=== PATIENT | male | born 1990 | race Caucasian/White ===

== ENCOUNTER 2022-10-22 18:17 | Emergency (ER) | payer OTHER ==
[~2022-10-22] VITALS: Ht 188 cm; Wt 106.6 kg
[2022-10-22] MEDS ORDERED: LACTATED RINGERS 1,000 ML IV ONE (18:30)
[2022-10-22 18:35] LABS: BASOPHILS % (AUTO) 1 % (0-10); EOSINOPHILS # (AUTO) 0.2 10^3/uL (0.0-0.3); EOSINOPHILS % (AUTO) 4 % (0-10); HEMATOCRIT 42 % (40-54); HEMOGLOBIN 14.3 g/dL (13.3-17.7); LYMPHOCYTES # (AUTO) 1.3 10^3/uL (1.0-4.0); LYMPHOCYTES % (AUTO) 26 % (12-44); MEAN CORPUSCULAR HEMOGLOBIN 30 pg (25-34); MEAN CORPUSCULAR HGB CONC 34 g/dL (32-36); MEAN CORPUSCULAR VOLUME 86 fL (80-99); MEAN PLATELET VOLUME 11.3 fL (9.0-12.2); MONOCYTES # (AUTO) 0.3 10^3/uL (0.0-1.0); MONOCYTES % (AUTO) 7 % (0-12); NEUTROPHILS % (AUTO) 62 % (42-75); PLATELET COUNT 209 10^3/uL (130-400); WHITE BLOOD COUNT 4.9 10^3/uL (4.3-11.0)
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
[2022-10-22 18:45] LABS: ALBUMIN 4.2 GM/DL (3.2-4.5); CHLORIDE 110 MMOL/L (98-107); POTASSIUM 3.4 MMOL/L (3.6-5.0); SODIUM 141 MMOL/L (135-145)
[2022-10-22] MEDS ORDERED: HOLD METFORMIN - RECEIVED CONTRAST 20 ML VIAL IV SCH (18:45)
[2022-10-22] MEDS ORDERED: IOHEXOL 350 MG/ML 100 ML (OMNIPAQUE 350) VIAL IV ONE (18:45)
[2022-10-22] MEDS ORDERED: NS 100 ML (IVPB) BAG IV ONE (18:45)
[2022-10-22 18:46] LABS: AMYLASE 28 U/L (25-125); CALCIUM 9.3 MG/DL (8.5-10.1)
[2022-10-22 18:47] LABS: GLUCOSE 103 MG/DL (70-105); TOTAL PROTEIN 6.5 GM/DL (6.4-8.2)
[2022-10-22 18:48] LABS: CARBON DIOXIDE 22 MMOL/L (21-32)
[2022-10-22 18:49] LABS: BILIRUBIN,TOTAL 0.8 MG/DL (0.1-1.0)
[2022-10-22 18:50] LABS: ALKALINE PHOSPHATASE 46 U/L (40-136)
[2022-10-22 18:51] LABS: CREATININE SERUM 0.88 MG/DL (0.60-1.30); GFR ESTIMATED 117; INR 1.1 (0.8-1.4); PROTHROMBIN TIME PATIENT 14.3 SEC (12.2-14.7)
[2022-10-22 18:52] LABS: BUN/CREATININE RATIO 13
[2022-10-22 18:54] LABS: ALANINE AMINOTRANSFERASE 13 U/L (0-55); LIPASE 18 U/L (8-78)
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
--- NOTE | 2022-10-22 19:40 | Diagnostic Imaging Report ---
INDICATION: Forearm pain. 2 views were obtained. FINDINGS: The alignment is normal. No fracture or dislocation. Soft tissues are unremarkable. IMPRESSION: No acute fracture or dislocation. Dictated by: Dictated on workstation # [id number]
--- NOTE | 2022-10-22 19:41 | Diagnostic Imaging Report ---
INDICATION: Wrist pain. 3 views were obtained. FINDINGS: The alignment is normal. There is no fracture or dislocation. Soft tissues are unremarkable. IMPRESSION: No acute fracture or dislocation. Dictated by: Dictated on workstation # [id number]
--- NOTE | 2022-10-22 19:41 | Diagnostic Imaging Report ---
INDICATION: Pelvic pain. FINDINGS: Examination of the pelvis in the supine projection fails to reveal evidence of fracture, dislocation or other osseous abnormality. IMPRESSION: Negative pelvis. Dictated by: Dictated on workstation # [id number]
--- NOTE | 2022-10-22 19:41 | Diagnostic Imaging Report ---
INDICATION: Leg pain 4 views were obtained. FINDINGS: The alignment of left tibia and fibular are normal. Knee and ankle are intact. There is no fracture or dislocation. Soft tissues are unremarkable. IMPRESSION: No acute fracture or dislocation. Dictated by: Dictated on workstation # [id number]
[2022-10-22] MEDS ORDERED: KETOROLAC 30 MG/ML VIAL IVP ONE (20:00)
[2022-10-22] MEDS ORDERED: CYCL10TA25 PO (20:05)
[2022-10-22] MEDS ORDERED: NAPR500T8 PO (20:05)
[2022-10-22] MEDS ORDERED: RX-CYCLOBENZAPRINE 10 MG (FLEXERIL) TAB PPK#3 PO STA (20:06)
[2022-10-22] MEDS ORDERED: RX-NAPROXEN (NAPROSYN) 250 MG TAB PPK#4 PO STA (20:06)
[2022-10-22 20:33] LABS: BILIRUBIN,URINE NEGATIVE (NEGATIVE); CLARITY,URINE CLEAR; COLOR,URINE YELLOW; GLUCOSE, URINE (UA) NEGATIVE (NEGATIVE); KETONES,URINE NEGATIVE (NEGATIVE); LEUKOCYTE ESTERASE ,URINE NEGATIVE (NEGATIVE); NITRITE,URINE NEGATIVE (NEGATIVE); PH,URINE 6.5 (5-9); PROTEIN,URINE NEGATIVE (NEGATIVE)
[2022-10-22 20:38] LABS: BACTERIA,URINE NEGATIVE /HPF; SQUAMOUS EPITHELIAL CELL,UR RARE /HPF
[2022-10-22 20:41] LABS: AMPHETAMINE SCREEN, URINE NEGATIVE (NEGATIVE); BARBITURATE SCREEN URINE NEGATIVE (NEGATIVE); BENZODIAZEPINES SCREEN URINE NEGATIVE (NEGATIVE); CANNABINOID SCREEN, URINE NEGATIVE (NEGATIVE); COCAINE SCREEN URINE NEGATIVE (NEGATIVE); METHADONE STAT NEGATIVE (NEGATIVE); OPIATE SCREEN URINE NEGATIVE (NEGATIVE); OXYCODONE STAT NEGATIVE (NEGATIVE); PROPOXYPHENE STAT NEGATIVE (NEGATIVE); TRICYCLIC ANTIDEPRESSANTS SCRE NEGATIVE (NEGATIVE)
[2022-10-22 20:48] VITALS: BP 140/83
== END 2022-10-22 20:48 | disposition home or self-care (01) ==
LOC: ER 18:19
DX: S16.1XXA Strain of muscle, fascia and tendon at neck level, initial encounter (principal); S39.012A Strain of muscle, fascia and tendon of lower back, initial encounter; M25.531 Pain in right wrist; M79.662 Pain in left lower leg; M25.512 Pain in left shoulder; V89.2XXA Person injured in unspecified motor-vehicle accident, traffic, initial encounter; Y92.410 Unspecified street and highway as the place of occurrence of the external cause
CPT/HCPCS: 70450; 71045; 71260; 72125; 72128; 72131; 72170; 73090; 73110; 73590; 74177; 80053; 80306; 81000; 82150; 83690; 85025; 85610; 85730; 93005; 93041; 99284; G0480; 36415; 80320